=== PATIENT | female | born 1975 | race Caucasian/White ===

== ENCOUNTER 2020-10-24 09:25 | Outpatient (CLI) | payer OTHER | END 2020-10-24 09:35 | disposition home or self-care (01) | LOC: MAMO-SONO 09:25 | DX: R22.41 Localized swelling, mass and lump, right lower limb (principal); Z12.31 Encounter for screening mammogram for malignant neoplasm of breast ==

== ENCOUNTER 2021-01-20 08:44 | Outpatient (CLI) | payer OTHER | END 2021-01-20 08:57 | disposition home or self-care (01) | LOC: RAD 08:44 | DX: Z01.811 Encounter for preprocedural respiratory examination (principal) ==

== ENCOUNTER 2021-08-09 08:00 | Outpatient (CLI) | payer OTHER | END 2021-08-09 08:04 | disposition home or self-care (01) | LOC: RAD 08:00 | DX: I10 Essential (primary) hypertension (principal); G71.11 Myotonic muscular dystrophy; Z13.6 Encounter for screening for cardiovascular disorders ==

== ENCOUNTER 2023-09-09 07:45 | Outpatient (CLI) | payer OTHER | END 2023-09-09 08:09 | disposition home or self-care (01) | LOC: MAMO-SONO 07:45 | DX: Z12.31 Encounter for screening mammogram for malignant neoplasm of breast (principal) ==

== ENCOUNTER 2025-01-04 08:39 | Outpatient (CLI) | payer OTHER | END 2025-01-04 08:49 | disposition home or self-care (01) | LOC: MAMO-SONO 08:39 | DX: R22.9 Localized swelling, mass and lump, unspecified (principal); Z12.31 Encounter for screening mammogram for malignant neoplasm of breast ==